=== PATIENT | female | born 1955 | race Hispanic/Latino ===

== ENCOUNTER 2018-11-11 20:05 | Emergency (ER) | payer OTHER ==
[~2018-11-11] VITALS: Ht 154.9 cm; Wt 59.0 kg
--- OUTSIDE RECORDS SUMMARY | 2018-11-11 20:07 | XMS REPORT | Summary of Care ---
Author Author [facility] Organization [facility] Address Unknown Phone Unavailable Encounter ELVIRA Russell(FLORECITA) [id number] Date(s): 12/14/16 - 12/16/16 [facility] [address] [place] [address]- Discharge Diagnosis: Hypoglycemia Discharge Disposition: Home or Self Care Attending Physician: Juwan Zayas MD Admitting Physician: Juwan Zayas MD Vital Signs 1 2 3 Most recent to oldest [Reference Range]: 157.48 cm (12/14/16 9:48 PM) Height 98.2 DegF (12/16/16 11:59 AM) 97.9 DegF (12/16/16 8:00 AM) 98.2 DegF (12/16/16 3:10 AM) Temperature Oral [96.4-99.1 DegF] 110/64 mmHg (12/16/16 11:59 AM) 131/77 mmHg (12/16/16 9:00 AM) 106/68 mmHg (12/16/16 8:00 AM) Blood Pressure [90-140/60-90 mmHg] 16 BRMIN (12/16/16 11:59 AM) 16 BRMIN (12/16/16 8:00 AM) 16 BRMIN (12/16/16 3:10 AM) Respiratory Rate [14-20 BRMIN] 85 bpm (12/16/16 11:59 AM) 89 bpm (12/16/16 9:00 AM) 81 bpm (12/16/16 8:00 AM) Peripheral Pulse Rate [60-100 bpm] 59.091 kg (12/14/16 9:48 PM) Weight 23.83 m2 (12/14/16 9:48 PM) Body Mass Index Problem List Condition Effective Dates Status Health Status Informant Diabetes(Confirmed) Resolved HTN Resolved (hypertension)(Confi rmed) Allergies, Adverse Reactions, Alerts Substance Reaction Severity Status NKDA Active Medications d50 syringe 25 mL, Route: IVP, Dosing Weight 59.091, kg, ONCE, STAT, Start date: 12/15/16 1: 10:00 END PACKER, Stop date: 12/15/16 1:10:00 END PACKER, 25 ml=12.5 gm Start Date: 12/15/16 Stop Date: 12/15/16 Status: Completed d50 syringe 25 mL, Route: IVP, Dosing Weight 59.091, kg, ONCE, STAT, Start date: 12/15/16 6: 05:00 END PACKER, Stop date: 12/15/16 6:05:00 END PACKER, 25 ml=12.5 gm Start Date: 12/15/16 Stop Date: 12/15/16 Status: Completed D5W 1/2NS 1,000 mL 1,000 mL, Rate: 100 ml/hr, Infuse over: 10 hr, Route: IV, Dosing Weight 59.091 k g, Total Volume: 1,000, Priority: STAT, Start date: 12/15/16 5:36:00 END PACKER, Durati on: 30 day, Stop date: 01/14/17 5:35:00 CDT Start Date: 12/15/16 Stop Date: 12/15/16 Status: Discontinued Dextrose 50% Syringe 12.5 gm, 25 mL, Route: IVP, Drug Form: INJ, Dosing Weight 59.091, kg, PRN, PRN B lood Glucose Results, Start date: 12/15/16 10:15:00 END PACKER, Duration: 30 day, Stop date: 01/14/17 11:14:00 CDT Start Date: 12/15/16 Stop Date: 12/16/16 Status: Discontinued Dextrose 50% Syringe 25 gm, 50 mL, Route: IVP, Drug Form: INJ, Dosing Weight 59.091, kg, PRN, PRN Blo od Glucose Results, Start date: 12/15/16 10:15:00 END PACKER, Duration: 30 day, Stop da te: 01/14/17 11:14:00 CDT Start Date: 12/15/16 Stop Date: 12/16/16 Status: Discontinued glipiZIDE 5 mg oral tablet 5 mg=1 tab, PO, Before Breakfast, # 30 tab, 0 Refill(s) Start Date: 12/15/16 Status: Ordered glucagon 1 mg, Route: IM, Drug form: PDR/INJ, PRN, Dosing Weight 59.091, kg, PRN Blood Gl ucose Results, Start date: 12/15/16 10:15:00 END PACKER, Duration: 30 day, Stop date: 0 01/14/17 11:14:00 CDT Start Date: 12/15/16 Stop Date: 12/16/16 Status: Discontinued ibuprofen 800, PO, BID, PRN Pain Score 1-5, 0 Refill(s) Start Date: 12/15/16 Status: Ordered insulin aspart 4 unit, 0.04 mL, Route: SUB-Q, Drug form: SOLN, TID-Before Meals, Dosing Weight 59.091, kg, PRN Blood Glucose Results, Start date: 12/15/16 10:15:00 END PACKER, Durati on: 30 day, Stop date: 01/14/17 10:14:00 CDT Notes: Roll in palms of hands gently; Do not shake vigorously. (Same as: Parth Webber)"single patient use only"WASTE: F/P - Black; E - Municipal Trash Bin Stable f or 28 days at room temperature.Expires in days from Date Start Date: 12/15/16 Stop Date: 12/16/16 Status: Discontinued insulin aspart 3 unit, 0.03 mL, Route: SUB-Q, Drug form: SOLN, TID-Before Meals, Dosing Weight 59.091, kg, PRN Blood Glucose Results, Start date: 12/15/16 10:15:00 END PACKER, Durati on: 30 day, Stop date: 01/14/17 10:14:00 CDT Notes: Roll in palms of hands gently; Do not shake vigorously. (Same as: Parth Webber)"single patient use only"WASTE: F/P - Black; E - Municipal Trash Bin Stable f or 28 days at room temperature.Expires in days from Date Start Date: 12/15/16 Stop Date: 12/16/16 Status: Discontinued insulin aspart 2 unit, 0.02 mL, Route: SUB-Q, Drug form: SOLN, TID-Before Meals, Dosing Weight 59.091, kg, PRN Blood Glucose Results, Start date: 12/15/16 10:15:00 END PACKER, Durati on: 30 day, Stop date: 01/14/17 10:14:00 CDT Notes: Roll in palms of hands gently; Do not shake vigorously. (Same as: Parth Webber)"single patient use only"WASTE: F/P - Black; E - Municipal Trash Bin Stable f or 28 days at room temperature.Expires in days from Date Start Date: 12/15/16 Stop Date: 12/16/16 Status: Discontinued insulin aspart 1 unit, 0.01 mL, Route: SUB-Q, Drug form: SOLN, TID-Before Meals, Dosing Weight 59.091, kg, PRN Blood Glucose Results, Start date: 12/15/16 10:15:00 END PACKER, Durati on: 30 day, Stop date: 01/14/17 10:14:00 CDT Notes: Roll in palms of hands gently; Do not shake vigorously. (Same as: Parth Webber)"single patient use only"WASTE: F/P - Black; E - Municipal Trash Bin Stable f or 28 days at room temperature.Expires in days from Date Start Date: 12/15/16 Stop Date: 12/16/16 Status: Discontinued insulin aspart 2 unit, 0.02 mL, Route: SUB-Q, Drug form: SOLN, Bedtime, Dosing Weight 59.091, k g, PRN Blood Glucose Results, Start date: 12/15/16 10:15:00 END PACKER, Duration: 30 da y, Stop date: 01/14/17 10:14:00 CDT Notes: Roll in palms of hands gently; Do not shake vigorously. (Same as: Parth Webber)"single patient use only"WASTE: F/P - Black; E - Municipal Trash Bin Stable f or 28 days at room temperature.Expires in days from Date Start Date: 12/15/16 Stop Date: 12/16/16 Status: Discontinued insulin aspart 1 unit, 0.01 mL, Route: SUB-Q, Drug form: SOLN, Bedtime, Dosing Weight 59.091, k g, PRN Blood Glucose Results, Start date: 12/15/16 10:15:00 END PACKER, Duration: 30 da y, Stop date: 01/14/17 10:14:00 CDT Notes: Roll in palms of hands gently; Do not shake vigorously. (Same as: Parth Webber)"single patient use only"WASTE: F/P - Black; E - Municipal Trash Bin Stable f or 28 days at room temperature.Expires in days from Date Start Date: 12/15/16 Stop Date: 12/16/16 Status: Discontinued insulin aspart 4 unit, 0.04 mL, Route: SUB-Q, Drug form: SOLN, Bedtime, Dosing Weight 59.091, k g, PRN Blood Glucose Results, Start date: 12/15/16 10:15:00 END PACKER, Duration: 30 da y, Stop date: 01/14/17 10:14:00 CDT Notes: Roll in palms of hands gently; Do not shake vigorously. (Same as: Parth Webber)"single patient use only"WASTE: F/P - Black; E - Municipal Trash Bin Stable f or 28 days at room temperature.Expires in days from Date Start Date: 12/15/16 Stop Date: 12/16/16 Status: Discontinued insulin aspart 3 unit, 0.03 mL, Route: SUB-Q, Drug form: SOLN, Bedtime, Dosing Weight 59.091, k g, PRN Blood Glucose Results, Start date: 12/15/16 10:15:00 END PACKER, Duration: 30 da y, Stop date: 01/14/17 10:14:00 CDT Notes: Roll in palms of hands gently; Do not shake vigorously. (Same as: Parth Webber)"single patient use only"WASTE: F/P - Black; E - Municipal Trash Bin Stable f or 28 days at room temperature.Expires in days from Date Start Date: 12/15/16 Stop Date: 12/16/16 Status: Discontinued insulin aspart 5 unit, 0.05 mL, Route: SUB-Q, Drug form: SOLN, TID-Before Meals, Dosing Weight 59.091, kg, PRN Blood Glucose Results, Start date: 12/15/16 10:15:00 END PACKER, Durati on: 30 day, Stop date: 01/14/17 10:14:00 CDT Notes: Roll in palms of hands gently; Do not shake vigorously. (Same as: Parth Webber)"single patient use only"WASTE: F/P - Black; E - Municipal Trash Bin Stable f or 28 days at room temperature.Expires in days from Date Start Date: 12/15/16 Stop Date: 12/16/16 Status: Discontinued Lantus 100 units/mL 17 unit, SUB-Q, Bedtime, 0 Refill(s) Start Date: 12/16/16 Stop Date: 12/16/16 Status: Discontinued Lantus 100 units/mL 20 unit, SUB-Q, Bedtime, 0 Refill(s) Start Date: 12/16/16 Stop Date: 12/16/16 Status: Discontinued lisinopril 5 mg, 1 tab, Route: PO, Drug form: TAB, Daily, Dosing Weight 59.091, kg, Start d ate: 12/16/16 9:00:00 END PACKER, Duration: 30 day, Stop date: 01/14/17 9:00:00 CDT Notes: (Same as: Prinivil, Zestril) Start Date: 12/16/16 Stop Date: 12/16/16 Status: Discontinued lisinopril 5 mg oral tablet 5 mg=1 tab, PO, Daily, # 30 tab, 0 Refill(s) Start Date: 12/15/16 Status: Ordered metFORMIN 1,000 mg, PO, BID, 0 Refill(s) Start Date: 12/15/16 Status: Ordered pneumococcal 23-valent vaccine 0.5 mL, Route: IM, Drug Form: INJ, Daily, Start date: 12/16/16 9:00:00 END PACKER, Dura tion: 1 doses or times, Stop date: 12/16/16 9:00:00 END PACKER Notes: (Same as: Pneumovax 23) Refrigerate Start Date: 12/16/16 Stop Date: 12/16/16 Status: Completed Sodium Chloride 0.9% (Bolus) IV 1,000 mL, 1,000 ml/hr, Infuse Over: 1 hr, Route: IV, 1,000, Drug form: INJ, ONCE , Priority: STAT, Dosing Weight 59.091 kg, Start date: 12/14/16 22:05:00 END PACKER, Du ration: 1 doses or times, Stop date: 12/14/16 22:05:00 END PACKER Start Date: 12/14/16 Stop Date: 12/15/16 Status: Deleted sodium chloride 0.9% 1000 ml INJ 1,000 mL 1,000 mL, Rate: 75 ml/hr, Infuse over: 13.3 hr, Route: IV, Dosing Weight 59.091 kg, Total Volume: 1,000, Start date: 12/15/16 10:17:00 END PACKER, Duration: 30 day, St op date: 01/14/17 10:16:00 CDT Start Date: 12/15/16 Stop Date: 12/16/16 Status: Discontinued Ultram 50 mg oral tablet 50 mg, 1 tab, Route: PO, Drug form: TAB, Q6H, Dosing Weight 59.091, kg, PRN Head ache 4-6, Start date: 12/15/16 10:18:00 END PACKER, Duration: 30 day, Stop date: 10:17:00 CDT Notes: Not to exceed 400mg/day. (Same As: Ultram) Start Date: 12/15/16 Stop Date: 12/16/16 Status: Discontinued Results ELECTROLYTES Most recent to 1 oldest [Reference Range]: Sodium Lvl [135-145 136 mEq/L mEq/L] (12/14/16 10:47 PM) Potassium Lvl 4.5 mEq/L [3.5-5.1 mEq/L] (12/14/16 10:47 PM) Chloride Lvl [95-109 99 mEq/L mEq/L] (12/14/16 10:47 PM) CO2 [24-32 mEq/L] 26 mEq/L (12/14/16 10:47 PM) AGAP [10.0-20.0 15.5 mEq/L mEq/L] (12/14/16 10:47 PM) CHEM PANEL Most recent to 1 oldest [Reference Range]: Creatinine Lvl 0.89 mg/dL [0.50-1.40 mg/dL] (12/14/16 10:47 PM) eGFR 71 mL/min/1.73m2 1 *NA* (12/14/16 10:47 PM) BUN [7-22 mg/dL] 21 mg/dL (12/14/16 10:47 PM) B/C Ratio [6-25] 24 (12/14/16 10:47 PM) Glucose Lvl [70-99 62 mg/dL mg/dL] *LOW* (12/14/16 10:47 PM) Total Protein 8.3 g/dL [6.4-8.4 g/dL] (12/14/16 10:47 PM) Albumin Lvl [3.5-5.0 3.7 g/dL g/dL] (12/14/16 10:47 PM) Globulin [2.7-4.2 4.6 g/dL g/dL] *HI* (12/14/16 10:47 PM) A/G Ratio [0.7-1.6] 0.8 (12/14/16 10:47 PM) Calcium Lvl 9.3 mg/dL [8.5-10.5 mg/dL] (12/14/16 10:47 PM) Magnesium Lvl 1.9 mg/dL [1.8-2.4 mg/dL] (12/15/16 12:05 PM) ALT [0-65 unit/L] 21 unit/L (12/14/16 10:47 PM) AST [0-37 unit/L] 30 unit/L (12/14/16 10:47 PM) Alk Phos [39-136 81 unit/L unit/L] (12/14/16 10:47 PM) Bili Total [0.2-1.3 0.4 mg/dL mg/dL] (12/14/16 10:47 PM) 1Result Comment: The eGFR is calculated using the CKD-EPI formula. In most young, healthy individuals the eGFR will be >90 mL/min/1.73m2. The eGFR declines with age. An eGFR of 60-89 may be normal in some populations, particularly the elderly, for whom the CKD-EPI formula has not been extensively validated. Use of the eGFR is not recommended in the following populations: Individuals with unstable creatinine concentrations, including patients and those with serious co-morbid conditions. Patients with extremes in muscle mass or diet. The data above are obtained from the National Kid[employer] Disease Education Program ( NKDEP) which additionally recommends that when the eGFR is used in patients with extremes of body mass index for purposes of drug dosing, the eGFR should be mul tiplied by the estimated BMI. CARDIAC ENZYMES Most recent to 1 oldest [Reference Range]: Troponin-I <0.02 ng/mL [0.00-0.40 ng/mL] (12/14/16 10:47 PM) SPECIAL CHEMISTRY Most recent to 1 oldest [Reference Range]: Hgb A1C [<=5.6 %] 7.4 % *HI* (12/15/16 12:05 PM) URINE CHEM Most recent to 1 oldest [Reference Range]: U Preg [Negative] Negative (12/15/16 12:52 AM) URINE AND STOOL Most recent to 1 oldest [Reference Range]: UA Turbidity [Clear] Clear (12/15/16 12:52 AM) UA Color Ltyellow *NA* (12/15/16 12:52 AM) UA pH [5.0-8.0] 5.0 (12/15/16 12:52 AM) UA Spec Grav 1.012 [<=1.030] (12/15/16 12:52 AM) UA Glucose [Negative Negative mg/dL mg/dL] *NA* (12/15/16 12:52 AM) UA Blood [Negative] Negative (12/15/16 12:52 AM) UA Ketones [Negative Negative mg/dL mg/dL] *NA* (12/15/16 12:52 AM) UA Protein [Negative Negative mg/dL mg/dL] (12/15/16 12:52 AM) UA Urobilinogen <=1.0 mg/dL [0.1-1.0 mg/dL] *NA* (12/15/16 12:52 AM) UA Bili [Negative] Negative *NA* (12/15/16 12:52 AM) UA Leuk Est Negative [Negative] (12/15/16 12:52 AM) UA Nitrite Negative [Negative] (12/15/16 12:52 AM) UA WBC [0-5 /HPF] 2 /HPF (12/15/16 12:52 AM) UA RBC [0-2 /HPF] 1 /HPF (12/15/16 12:52 AM) UA Sq Epi [Few /LPF] Occasional /LPF *NA* (12/15/16 12:52 AM) UA Hyal Cast [0-2 22 /LPF /LPF] *HI* (12/15/16 12:52 AM) UA Mucus [None Seen Few /LPF /LPF] *NA* (12/15/16 12:52 AM) HEMATOLOGY Most recent to 1 oldest [Reference Range]: WBC [3.7-10.4 K/CMM] 10.4 K/CMM (12/14/16 10:47 PM) RBC [4.20-5.40 4.73 M/CMM M/CMM] (12/14/16 10:47 PM) Hgb [12.0-16.0 g/dL] 13.1 g/dL (12/14/16 10:47 PM) Hct [36.0-48.0 %] 39.9 % (12/14/16 10:47 PM) MCV [80.0-98.0 fL] 84.3 fL (12/14/16 10:47 PM) MCH [27.0-31.0 pg] 27.6 pg (12/14/16 10:47 PM) MCHC [32.0-36.0 32.8 g/dL g/dL] (12/14/16 10:47 PM) RDW [11.5-14.5 %] 13.9 % (12/14/16 10:47 PM) Platelet [133-450 230 K/CMM K/CMM] (12/14/16 10:47 PM) MPV [7.4-10.4 fL] 8.9 fL (12/14/16 10:47 PM) Segs [45.0-75.0 %] 78.9 % *HI* (12/14/16 10:47 PM) Lymphocytes 15.2 % [20.0-40.0 %] *LOW* (12/14/16 10:47 PM) Monocytes [2.0-12.0 5.3 % %] (12/14/16 10:47 PM) Eosinophils [0.0-4.0 0.2 % %] (12/14/16 10:47 PM) Basophils [0.0-1.0 0.4 % %] (12/14/16 10:47 PM) Segs-Bands # 8.2 K/CMM [1.5-8.1 K/CMM] *HI* (12/14/16 10:47 PM) Lymphocytes # 1.6 K/CMM [1.0-5.5 K/CMM] (12/14/16 10:47 PM) Monocytes # [0.0-0.8 0.6 K/CMM K/CMM] (12/14/16 10:47 PM) Sed Rate [0-20 44 mm/hr mm/hr] *HI* (12/15/16 12:05 PM) Immunizations Given and Recorded Vaccine Date Status Refusal Reason pneumococcal 23-valent vaccine 12/16/16 Given Procedures No data available for this section Social History Social History Type Response Smoking Status Never smoker; Exposure to Tobacco Smoke None; Cigarette Smoking Last 365 Days No; Reg Smoking Cessation Counseling No Assessment and Plan No data available for this section
--- OUTSIDE RECORDS SUMMARY | 2018-11-11 20:07 | XMS REPORT | Continuity of Care Document ---
Author Author [facility] Interface Address Unknown Phone Unavailable Problems Problem Status Onset Date Classification Date Reported Comments Source Discharge Diagnosis: Hypoglycemia 12/15/2016 12/19/2016 [facility] AMS, HYPERGLYCEMIC Active 12/14/2016 [facility] HYPOGLYCEMIA Active 12/14/2016 [facility] HYPOGLYCEMIA Active 12/14/2016 [facility] LEFT KNEE PAIN Active 04/04/2014 [facility] Diabetes Resolved Problem 12/19/2016 [facility] HTN (<span [id number]</span>) Resolved Problem 12/19/2016 [facility] HYPOGLYCEMIA, UNSPECIFIED Active [facility] Medications Medication Details Route Status Patient Instructions Ordering Provider Order Date Source Insulin Glargine 100 UNT/ML Injectable Solution [Lantus] 17 unit, SUB-Q, Bedtime, 0 Refill(s) Inactive 12/16/2016 [facility] pneumococcal capsular polysaccharide type 1 vaccine / pneumococcal capsular polysaccharide type 10A vaccine / pneumococcal capsular polysaccharide type 11A vaccine / pneumococcal capsular polysaccharide type 12F vaccine / pneumococcal capsular polysacchar 0.5 mL, Route: IM, Drug Form: INJ, Daily, Start date: 12/16/16 9:00:00 [employer], Duration: 1 doses or times, Stop date: 12/16/16 9:00:00 CSTNotes: (Same as: Pneumovax 23) Refrigerate Inactive 12/16/2016 [facility] Lisinopril 5 mg, 1 tab, Route: PO, Drug form: TAB, Daily, Dosing Weight 59.091, kg, Start date: 12/16/16 9:00:00 [employer], Duration: 30 day, Stop date: 01/14/17 9:00:00 CDTNotes: (Same as: Prinivil, Zestril) Inactive 12/16/2016 [facility] tramadol hydrochloride 50 MG Oral Tablet [Ultram] 50 mg, 1 tab, Route: PO, Drug form: TAB, Q6H, Dosing Weight 59.091, kg, PRN Headache 4-6, Start date: 12/15/16 10:18:00 [employer], Duration: 30 day, Stop date: 01/14/17 10:17:00 CDTNotes: Not to exceed 400mg/day. (Same As: Ultram) No Longer Active 12/15/2016 [facility] Sodium Chloride 0.154 MEQ/ML Injectable Solution 1,000 mL, Rate: 75 ml/hr, Infuse over: 13.3 hr, Route: IV, Dosing Weight 59.091 kg, Total Volume: 1,000, Start date: 12/15/16 10:17:00 [employer], Duration: 30 day, Stop date: 01/14/17 10:16:00 CDT No Longer Active 12/15/2016 [facility] Insulin, Aspart, Human 4 unit, 0.04 mL, Route: SUB-Q, Drug form: SOLN, TID-Before Meals, Dosing Weight 59.091, kg, PRN Blood Glucose Results, Start date: 12/15/16 10:15:00 [employer], Duration: 30 day, Stop date: 01/14/17 10:14:00 CDTNotes: Roll in palms of hands gently; Do not shake vigorously. (Same as: NovoLOG) "single patient use only" WASTE: F/P - Black; E - Municipal Trash Bin Stable for 28 days at room temperature. Expires in days from Date No Longer Active 12/15/2016 [facility] Glucagon 1 mg, Route: IM, Drug form: PDR/INJ, PRN, Dosing Weight 59.091, kg, PRN Blood Glucose Results, Start date: 12/15/16 10:15:00 [employer], Duration: 30 day, Stop date: 01/14/17 11:14:00 CDT No Longer Active 12/15/2016 [facility] Dextrose 50% Syringe 12.5 gm, 25 mL, Route: IVP, Drug Form: INJ, Dosing Weight 59.091, kg, PRN, PRN Blood Glucose Results, Start date: 12/15/16 10:15:00 [employer], Duration: 30 day, Stop date: 01/14/17 11:14:00 CDT No Longer Active 12/15/2016 [facility] Metformin 1,000 mg, PO, BID, 0 Refill(s) Active 12/15/2016 [facility] Glipizide 5 MG Oral Tablet 5 mg=1 tab, PO, Before Breakfast, # 30 tab, 0 Refill(s) Active 12/15/2016 [facility] Ibuprofen 800, PO, BID, PRN Pain Score 1-5, 0 Refill(s) Active 12/15/2016 [facility] lisinopril 5 mg oral tablet 5 mg=1 tab, PO, Daily, # 30 tab, 0 Refill(s) Active 12/15/2016 [facility] d50 syringe 25 mL, Route: IVP, Dosing Weight 59.091, kg, ONCE, STAT, Start date: 12/15/16 6:05:00 [employer], Stop date: 12/15/16 6:05:00 [employer], 25 ml=12.5 gm Inactive 12/15/2016 [facility] D5W 1/2NS 1,000 mL 1,000 mL, Rate: 100 ml/hr, Infuse over: 10 hr, Route: IV, Dosing Weight 59.091 kg, Total Volume: 1,000, Priority: STAT, Start date: 12/15/16 5:36:00 [employer], Duration: 30 day, Stop date: 01/14/17 5:35:00 CDT Inactive 12/15/2016 [facility] d50 syringe 25 mL, Route: IVP, Dosing Weight 59.091, kg, ONCE, STAT, Start date: 12/15/16 1:10:00 [employer], Stop date: 12/15/16 1:10:00 [employer], 25 ml=12.5 gm Inactive 12/15/2016 [facility] Sodium Chloride 0.154 MEQ/ML Injectable Solution 1,000 mL, 1,000 ml/hr, Infuse Over: 1 hr, Route: IV, 1,000, Drug form: INJ, ONCE, Priority: STAT, Dosing Weight 59.091 kg, Start date: 12/14/16 22:05:00 [employer], Duration: 1 doses or times, Stop date: 12/14/16 22:05:00 [employer] No Longer Active 12/15/2016 [facility] Allergies, Adverse Reactions, Alerts Substance Category Reaction Severity Reaction type Status Date Reported Comments Source Immunizations Immunization Date Given Site Status Last Updated Comments Source pneumococcal 23-valent vaccine 12/16/2016 Left deltoid completed Brigette [facility] Results Order Name Results Value Reference Range Date Interpretation Comments Source CHEM PANEL Magnesium Lvl 1.9 mg/dL 1.8 - 2.4 12/15/2016 [facility] HEMATOLOGY Sed Rate 44 mm/h 0 - 20 12/15/2016 [facility] SPECIAL CHEMISTRY Hgb A1C 7.4 % <=5.6 % 12/15/2016 [facility] URINE AND STOOL UA Turbidity Clear (12/15/16 12:52 AM) Clear 12/15/2016 [facility] URINE AND STOOL UA RBC 1 /HPF 0 - 2 12/15/2016 [facility] URINE AND STOOL UA Mucus Few /LPF None Seen /LPF 12/15/2016 [facility] URINE AND STOOL UA Hyal Cast 22 /LPF 0 - 2 12/15/2016 [facility] URINE AND STOOL UA Leuk Est Negative (12/15/16 12:52 AM) Negative 12/15/2016 [facility] URINE AND STOOL UA Sq Epi Occasional /LPF Few /LPF 12/15/2016 [facility] URINE AND STOOL UA WBC 2 /HPF 0 - 5 12/15/2016 [facility] URINE AND STOOL UA Color Ltyellow 12/15/2016 [facility] URINE AND STOOL UA Urobilinogen <=1.0 mg/dL 0.1 - 1.0 12/15/2016 [facility] URINE AND STOOL UA Ketones Negative mg/dL Negative mg/dL 12/15/2016 [facility] URINE AND STOOL UA Blood Negative (12/15/16 12:52 AM) Negative 12/15/2016 [facility] URINE AND STOOL UA Bili Negative *NA* (12/15/16 12:52 AM) Negative 12/15/2016 [facility] URINE AND STOOL UA Nitrite Negative (12/15/16 12:52 AM) Negative 12/15/2016 [facility] URINE AND STOOL UA pH 5.0 5.0 - 8.0 12/15/2016 [facility] URINE AND STOOL UA Spec Grav 1.012 <=1.030 12/15/2016 [facility] URINE AND STOOL UA Glucose Negative mg/dL Negative mg/dL 12/15/2016 [facility] URINE AND STOOL UA Protein Negative mg/dL Negative mg/dL 12/15/2016 [facility] URINE CHEM U Preg Negative (12/15/16 12:52 AM) Negative 12/15/2016 [facility] CARDIAC ENZYMES Troponin-I null 0.00 - 0.40 12/15/2016 [facility] CHEM PANEL Globulin 4.6 g/dL 2.7 - 4.2 12/15/2016 [facility] CHEM PANEL A/G Ratio 0.8 0.7 - 1.6 12/15/2016 [facility] CHEM PANEL B/C Ratio 24 6 - 25 12/15/2016 [facility] CHEM PANEL eGFR 71 mL/min/1.73m2 12/15/2016 Result Comment: The eGFR is calculated using the [...] from the National Kid[employer] Disease Education Program (NKDEP) which additionally recommends that when the eGFR is used in patients with extremes of body mass index for purposes of drug dosing, the eGFR should be multiplied by the estimated BMI. [facility] CHEM PANEL AST 30 unit/L 0 - 37 12/15/2016 [facility] CHEM PANEL Albumin Lvl 3.7 g/dL 3.5 - 5.0 12/15/2016 [facility] CHEM PANEL ALT 21 unit/L 0 - 65 12/15/2016 [facility] CHEM PANEL Total Protein 8.3 g/dL 6.4 - 8.4 12/15/2016 [facility] CHEM PANEL AGAP 15.5 meq/L 10.0 - 20.0 12/15/2016 [facility] CHEM PANEL Bili Total 0.4 mg/dL 0.2 - 1.3 12/15/2016 [facility] CHEM PANEL Alk Phos 81 unit/L 39 - 136 12/15/2016 [facility] CHEM PANEL Potassium Lvl 4.5 meq/L 3.5 - 5.1 12/15/2016 [facility] CHEM PANEL Creatinine Lvl 0.89 mg/dL 0.50 - 1.40 12/15/2016 [facility] CHEM PANEL Sodium Lvl 136 meq/L 135 - 145 12/15/2016 [facility] CHEM PANEL Chloride Lvl 99 meq/L 95 - 109 12/15/2016 [facility] CHEM PANEL CO2 26 meq/L 24 - 32 12/15/2016 [facility] CHEM PANEL Calcium Lvl 9.3 mg/dL 8.5 - 10.5 12/15/2016 [facility] CHEM PANEL BUN 21 mg/dL 7 - 22 12/15/2016 [facility] CHEM PANEL Glucose Lvl 62 mg/dL 70 - 99 12/15/2016 [facility] Monocytes # 0.6 K/CMM 0.0 - 0.8 12/15/2016 [facility] Monocytes 5.3 % 2.0 - 12.0 12/15/2016 [facility] Eosinophils 0.2 % 0.0 - 4.0 12/15/2016 [facility] HEMATOLOGY Segs 78.9 % 45.0 - 75.0 12/15/2016 [facility] Lymphocytes 15.2 % 20.0 - 40.0 12/15/2016 [facility] Basophils 0.4 % 0.0 - 1.0 12/15/2016 [facility] Segs-Bands # 8.2 K/CMM 1.5 - 8.1 12/15/2016 [facility] Lymphocytes # 1.6 K/CMM 1.0 - 5.5 12/15/2016 [facility] MPV 8.9 fL 7.4 - 10.4 12/15/2016 [facility] WBC 10.4 K/CMM 3.7 - 10.4 12/15/2016 [facility] RBC 4.73 M/CMM 4.20 - 5.40 12/15/2016 [facility] Hgb 13.1 g/dL 12.0 - 16.0 12/15/2016 [facility] Hct 39.9 % 36.0 - 48.0 12/15/2016 [facility] MCV 84.3 fL 80.0 - 98.0 12/15/2016 [facility] MCH 27.6 pg 27.0 - 31.0 12/15/2016 [facility] MCHC 32.8 g/dL 32.0 - 36.0 12/15/2016 [facility] RDW 13.9 % 11.5 - 14.5 12/15/2016 [facility] Platelet 230 K/CMM 133 - 450 12/15/2016 [facility] Brain wo contrast CT Brain wo contrast CT I have reviewed this examination and concur with the interpretation. Patient Name: ARGELIA COLES : 1955; Age: 61 years y/o Female MR: [id number] Study: Brain wo contrast CT 12/15/2016 2:36 AM [employer] Clinical Indication: AMS Headache .; ct dlp: 859.11mGycm Comparison: None TECHNIQUE: CT images were obtained from the foramen magnum to the vertex without the use of intravenous contrast on a multidetector CT. Coronal and sagittal reconstructions were obtained. FINDINGS: BRAIN PARENCHYMA: There are normal butler-white interfaces. No evidence for subarachnoid, intraparenchymal or intraventricular hemorrhage. No significant extra-axial fluid collection, mass effect or shift. No evidence for an acute infarction. No mass lesions identified about the brain. VENTRICLES: Ventricles and sulci are within normal limits for the patient's age. ORBITS, MASTOIDS AND PARANASAL SINUSES: The visualized orbits and paranasal sinuses are unremarkable. The mastoid air cells are clear. SKULL: There are no osseous abnormalities. If there is further concern for intracranial pathology or acute stroke, MRI of the brain may be performed for complete assessment. IMPRESSION: Unremarkable noncontrast head CT. SL: PUNEET 12/15/2016 - - Read by: David Hagen MD Dictated Date/time: 12/15/16 05:30 Electronically Signed by: David Hagen MD 12/15/16 05:32 FINAL REPORT - - Read by: Bronson Simmons MD Dictated Date/time: 12/15/16 05:26 Electronically Signed by: Bronson Simmons MD 12/15/16 05:27 FINAL REPORT [facility] Vital Signs Vital Sign Value Date Comments Source Systolic (mm Hg) 110 12/16/2016 [facility] Diastolic (mm Hg) 64 12/16/2016 [facility] Respitory Rate 16 12/16/2016 [facility] Temperature Oral (F) 98.2 F 12/16/2016 [facility] Heart Rate 85 12/16/2016 [facility] Systolic (mm Hg) 131 12/16/2016 [facility] Diastolic (mm Hg) 77 12/16/2016 [facility] Heart Rate 89 12/16/2016 [facility] Temperature Oral (F) 97.9 F 12/16/2016 [facility] Systolic (mm Hg) 106 12/16/2016 [facility] Diastolic (mm Hg) 68 12/16/2016 [facility] Respitory Rate 16 12/16/2016 [facility] Heart Rate 81 12/16/2016 [facility] Respitory Rate 16 12/16/2016 [facility] Temperature Oral (F) 98.2 F 12/16/2016 [facility] Weight 59.091 12/15/2016 [facility] Height 157.48 cm 12/15/2016 [facility] BMI Calculated 23.83 12/15/2016 [facility] Encounters Location Location Details Encounter Type Encounter Number Reason For Visit Attending Provider ADM Date DC Date Status Source [facility] Observation [id number] Ailynstephanie Galdamezugouris 12/15/2016 12/16/2016 [facility] Procedures Procedure Code Date Perfomer Comments Source
--- NOTE | 2018-11-11 22:17 | Diagnostic Imaging Report ---
EXAM: HAND 3+ VIEWS LEFT, WRIST COMPLETE LEFT, FOREARM LEFT 2 VIEW INDICATION: Fall today getting off bus, left hand, wrist and forearm pain COMPARISON: None FINDINGS: BONES: Diffuse bone demineralization. Thin lucency across the distal radial diaphysis best seen on oblique view of the wrist. JOINTS: No dislocation. Severe joint space narrowing of the proximal and distal interphalangeal joints, predominantly involving the fifth digit. SOFT TISSUES: Mild soft tissue swelling of the wrist. IMPRESSION: Acute nondisplaced fracture of the distal left radius. No evidence of fracture of the left hand or proximal forearm. Signed by: Dr. Christiane Yu M.D. on 11/11/2018 10:13 PM
[2018-11-12 00:52] VITALS: BP 149/100
== END 2018-11-12 01:10 | disposition home or self-care (01) ==
LOC: ER 20:05
DX: M25.532 Pain in left wrist (principal); S52.592A Other fractures of lower end of left radius, initial encounter for closed fracture; W17.89XA Other fall from one level to another, initial encounter; Y93.89 Activity, other specified
CPT/HCPCS: 99284